=== PATIENT | male | born 1990 | race Asian ===

== ENCOUNTER 2020-01-02 16:36 | Emergency (ER) | payer MEDICAID, OTHER ==
[~2020-01-02] VITALS: Ht 177.8 cm; Wt 81.6 kg
--- NOTE | 2020-01-02 17:08 | Diagnostic Imaging Report ---
EXAM: XR Chest, 1 View CLINICAL HISTORY: SOB TECHNIQUE: Frontal view of the chest. COMPARISON: No relevant prior studies available. FINDINGS: Lungs: Unremarkable. No consolidation. Pleural space: Unremarkable. No pneumothorax. Heart: Unremarkable. No cardiomegaly. Mediastinum: Unremarkable. Bones/joints: Unremarkable. IMPRESSION: No acute cardiopulmonary disease.
--- NOTE | 2020-01-02 17:15 | NUR ---
ED Nurse Note:pt. came from home with c/o sore throat at nights, blood was sent to labs and given IV med
[2020-01-02 17:27] VITALS: BP 141/78
[2020-01-02 17:36] LABS: BASOPHILS % (AUTO) 1.3 % (0.0-2.0); HEMATOCRIT 47.8 % (42.0-52.0); HEMOGLOBIN 16.6 G/DL (14.2-18.0); LYMPHOCYTES % (AUTO) 36.6 % (20.0-45.0); MEAN CORPUSCULAR VOLUME 86 FL (80-99); MONOCYTES % (AUTO) 5.1 % (1.0-10.0); PLATELET COUNT 281 K/UL (150-450); RED BLOOD COUNT 5.59 M/UL (4.70-6.10); RED CELL DISTRIBUTION WIDTH 11.4 % (11.6-14.8); WHITE BLOOD COUNT 8.4 K/UL (4.8-10.8)
[2020-01-02 17:49] LABS: ANION GAP 12 mmol/L (5-15); BLOOD UREA NITROGEN 22 mg/dL (7-18); CALCIUM 8.7 MG/DL (8.5-10.1); CARBON DIOXIDE 23 MMOL/L (21-32); CHLORIDE 106 MMOL/L (98-107); CREATININE 1.3 MG/DL (0.55-1.30); POTASSIUM 3.7 MMOL/L (3.5-5.1); SODIUM 141 MMOL/L (136-145)
[2020-01-02 17:54] LABS: ALANINE AMINOTRANSFERASE 72 U/L (12-78); ALBUMIN 4.3 G/DL (3.4-5.0); ALBUMIN/GLOBULIN RATIO 1.5 (1.0-2.7); ALKALINE PHOSPHATASE 63 U/L (46-116); ASPARTATE AMINO TRANSFERASE 30 U/L (15-37); BILIRUBIN,TOTAL 0.3 MG/DL (0.2-1.0)
--- NOTE | 2020-01-02 19:06 | Emergency Room Report ---
History of Present Illness General Chief Complaint: General Complaint Source: Patient Present Illness HPI 29-year-old male with no known significant past medical history here complaining of over 1 months of feeling like the throat is closing and painful upon laying flat on his back and has to turn to the side noted to feel better. Denies any acid reflux, cough and congestion, chest pain shortness of breath. Patient reports that he has been a tobacco smoker for a long time however denies drug use and alcohol intake. Denies eating spicy acidic food. Denies any fever and chills, neck stiffness, nausea vomiting, headache and dizziness. Nexus criteria is negative. Denies any trauma. Denies any history of thyroid issues, denies weight gain, weight loss, and other associate symptoms. Has not yet been evaluated by primary care provider. Allergies: Coded Allergies: No Known Allergies (Unverified , 01/02/20) COVID-19 Screening Contact w/high risk pt: No Experienced COVID-19 symptoms?: No COVID-19 Testing performed WILDLIFE MANAGEMENT PROFESSOR: No Patient History Past Medical History: see triage record Past Surgical History: none Pertinent Family History: none Immunizations: UTD Reviewed Nursing Documentation: PMH: Agreed; PSxH: Agreed Nursing Documentation-PMH Past Medical History: No Stated History Review of Systems All Other Systems: negative except mentioned in HPI Physical Exam Vital Signs Date Time Temp Pulse Resp B/P (MAP) Pulse Ox O2 Delivery O2 Flow Rate FiO2 01/02/20 16:39 98.4 79 18 141/78 (99) 97 Room Air Sp02 EP Interpretation: reviewed, normal General Appearance: no apparent distress, alert, GCS 15, non-toxic Head: normocephalic, atraumatic Eyes: bilateral eye normal inspection, bilateral eye PERRL ENT: hearing grossly normal, normal pharynx, no angioedema, normal voice Neck: full range of motion, supple, thyroid normal, no meningismus, no bony tend, other - Small mass noted midline anterior cervical Respiratory: chest non-tender, lungs clear, normal breath sounds, speaking full sentences Cardiovascular #1: regular rate, rhythm, no edema Cardiovascular #2: 2+ carotid (R), 2+ carotid (L) Gastrointestinal: normal bowel sounds, non tender, soft, non-distended, no guarding, no rebound Rectal: deferred Genitourinary: no CVA tenderness Musculoskeletal: back normal Neurologic: alert, motor strength/tone normal, oriented x3, sensory intact, responsive, speech normal Psychiatric: judgement/insight normal, memory normal, mood/affect normal, no suicidal/homicidal ideation Skin: no rash Lymphatic: adenopathy - mid cervical anterior Medical Decision Making PA Attestation All my diagnosis and treatment plans were reviewed ad discussed with my supervising physician Dr. Stanley Diagnostic Impression: Primary Impression: Throat discomfort Additional Impression: Gastritis ER Course 29-year-old male with no known significant past medical history here complaining of over 1 months of feeling like the throat is closing and painful upon laying flat on his back and has to turn to the side noted to feel better. Denies any acid reflux, cough and congestion, chest pain shortness of breath. Patient reports that he has been a tobacco smoker for a long time however denies drug use and alcohol intake. Denies eating spicy acidic food. Denies any fever and chills, neck stiffness, nausea vomiting, headache and dizziness. Nexus criteria is negative. Denies any trauma. Denies any history of thyroid issues, denies weight gain, weight loss, and other associate symptoms. Has not yet been evaluated by primary care provider. Ddx considered but are not limited to: neck mass, esophagitis, strep pharyngitis, URI, tonsillitis, peritonsillar abscess, influneza Vital signs: are WNL, pt. is afebrile H&PE are most consistent with: Throat discomfort, gastritis ORDERS: CT neck soft tissue with contrast, CBC, CMP, Pepcid ED INTERVENTIONS: Pepcid DISCHARGE: At this time pt. is stable for d/c to home. Will provide printed patient care instructions, and any necessary prescriptions. Care plan and follow up instructions have been discussed with the patient prior to discharge. Patient to follow-up with ENT and air quality instrument specialist, CT scan did not rule out any mass patient to follow-up further follow-up with primary doctor. If worsening symptoms return to the emergency room CT/MRI/US Diagnostic Results CT/MRI/US Diagnostic Results : Imaging Test Ordered: CT neck soft tissue with contrast Impression FINDINGS: Oropharynx: Unremarkable. No significant tonsillar enlargement. No peritonsillar abscess. Hypopharynx: Unremarkable. Larynx: Unremarkable. Normal epiglottis. Trachea: Unremarkable. Retropharyngeal space: Unremarkable. Submandibular/parotid glands: Unremarkable. Glands are normal in size. Thyroid: Unremarkable. No enlarged or calcified nodules. Bones/joints: No acute fracture. Soft tissues: Unremarkable. Vasculature: No acute findings. Lymph nodes: Unremarkable. No lymphadenopathy. Lung apices: Unremarkable as visualized. IMPRESSION: Normal neck CT. Last Vital Signs Date Time Temp Pulse Resp B/P (MAP) Pulse Ox O2 Delivery O2 Flow Rate FiO2 01/02/20 17:27 79 18 Room Air 01/02/20 17:27 98.4 141/78 97 Disposition: HOME, SELF-CARE Condition: Stable Scripts Famotidine* (Pepcid 20mg tablet*) 20 Mg Tablet 20 MG ORAL DAILY for Gerd, #30 TAB 0 Refills Prov: Sonya Briggs 01/02/20 Patient Instructions: Gastritis, Adult, [id number], Sore Throat Additional Instructions: Take medication as directed, follow primary care provider, referral to ENT and air quality instrument specialist may be needed, if worsening symptoms return to the emergency room Sonya Briggs Jan 02, 2020 19:06
--- NOTE | 2020-01-02 19:07 | NUR ---
ED Nurse Note:pt. had CT scan
--- NOTE | 2020-01-02 19:09 | NUR ---
ED Nurse Note: received report from Leatha WEAVER. pt back from ct
--- NOTE | 2020-01-02 19:53 | Diagnostic Imaging Report ---
EXAM: CT Neck With Intravenous Contrast CLINICAL HISTORY: MASS TECHNIQUE: Axial computed tomography images of the neck with intravenous contrast. CTDI is 175.3 mGy and DLP is 565.7 mGy-cm. One or more of the following dose reduction techniques were used: automated exposure control, adjustment of the mA and/or kV according to patient size, use of iterative reconstruction technique. COMPARISON: No relevant prior studies available. FINDINGS: Oropharynx: Unremarkable. No significant tonsillar enlargement. No peritonsillar abscess. Hypopharynx: Unremarkable. Larynx: Unremarkable. Normal epiglottis. Trachea: Unremarkable. Retropharyngeal space: Unremarkable. Submandibular/parotid glands: Unremarkable. Glands are normal in size. Thyroid: Unremarkable. No enlarged or calcified nodules. Bones/joints: No acute fracture. Soft tissues: Unremarkable. Vasculature: No acute findings. Lymph nodes: Unremarkable. No lymphadenopathy. Lung apices: Unremarkable as visualized. IMPRESSION: Normal neck CT.
[2020-01-02] MEDS ORDERED: FAMOTIDINE20 MG ORAL (20:39)
[2020-01-02 20:45] VITALS: BP 132/69
--- NOTE | 2020-01-02 20:45 | NUR ---
ER DISCHARGE NOTE: Patient is cleared to be discharged per ERMD, pt is aox4, on room air, with stable vital signs. pt was given dc and prescription instructions, pt was able to verbalize understanding, pt id band and iv site removed without complications. pt is able to ambulate with steady gait. pt took all belongings.
== END 2020-01-02 20:45 | disposition home or self-care (01) ==
LOC: EMR 17:00
DX: R07.0 Pain in throat (principal); K29.70 Gastritis, unspecified, without bleeding; R06.02 Shortness of breath
CPT/HCPCS: 36415; 70491; 71045; 80053; 85025; 96374; Q9967; Z7502; 99284